=== PATIENT | female | born 1975 | race Caucasian/White ===

== ENCOUNTER → 2016-10-30 | Outpatient (CLI) | payer BC ==
--- NOTE | 2016-10-31 07:34 | WWHP ---
DATE OF SERVICE: 10/30/2016 CHIEF COMPLAINT: The patient is here for her routine gynecologic exam. HPI: This is a 41-year-old G3, P2-0 -1-2 with an LMP of 10/08/16. She has been using condoms for control. She states her periods have been regular every month, lasting 4 days with one day of heavy flow and period related pain. She states she can soak through her protection after about one hour on the very heavy days. She notices that if she is eating healthy and exercising regularly that the periods tend not to be as bad. She also states she had brief episode of vaginal odor mid September. She got concerned that she may have had a retained tampon since she does use tampons with her periods. The patient denies vaginal discharge and the odor resolved on its own. PAST MEDICAL HISTORY: DVT in 2012. She was on Coumadin for about 2 years and this was discontinued. She tested positive for MTHFR mutation and factor V Leiden mutation. MEDICATION: Aspirin 325 mg daily. ALLERGIES: No known drug allergies. PAST SURGICAL HISTORY: Tonsillectomy with adenoidectomy at age 19. Voluntary termination of in the past. PAST SUPERVISORY CLERK HISTORY: She has had hypermenorrhea and dysmenorrhea as above. She has no history of STDs. SOCIAL HISTORY: She denies tobacco and drug use and socially drinks alcohol. She is and does have a boyfriend. She is a fourth grade elementary schoolteacher. Family history is unchanged from the 2013 H&P. REVIEW OF SYSTEMS: Weight has been stable. RESPIRATORY: She is getting over a cold. She denies cardiac or GI problems. PHYSICAL EXAM: Blood pressure 124/85. Height 5 feet 7 inches. Weight 188 pounds. Temperature 98.7, pulse 97. This is a well-developed, well-nourished white female who is alert and oriented x3 in no acute distress. HEENT is within normal limits. NECK: Supple without mass or thyromegaly. CHEST AND LUNGS: Clear to auscultation. HEART: Regular rate and rhythm. Breasts are without mass or discharge. Axillary exam is negative for adenopathy. BACK: Negative for CVA tenderness. ABDOMEN: Soft, nontender, without palpable masses. PELVIC EXAM: Normal external genitalia. Cervix and vagina reveal a scant amount of menstrual-type blood in the vagina. There is no abnormal discharge and no odor noted. There is no evidence of retained tampon. There is no cervical motion tenderness. The uterus is midposition, nongravid size and nontender. There are no palpable adnexal masses or tenderness. Rectovaginal exam is negative for mass or tenderness and is negative for occult blood. EXTREMITIES: Nontender. IMPRESSION: 1. A 41-year-old female with normal gynecologic exam using condoms for control. 2. Mild hypermenorrhea and dysmenorrhea on the first day of each menstrual period without any significant physical findings at this time. 3. Brief history of vaginal odor one month ago, which did resolve. No evidence of vaginitis or retained tampons on examination. PLAN: 1. Pap smear was performed. 2. Self breast examination was discussed. 3. Baseline screening mammogram was recommended and a slip was given to patient for this. 4. Trial of meclofenamate sodium 100 mg t.i.d. p.r.n. for heavy menstrual flow up to 6 days per cycle. If there is no significant improvement, consider referral for endometrial ablation. 5. She will return if she is having recurrent vaginal odor or problems. 6. She will return in one year.
== END | disposition home or self-care (01) ==
LOC: WWCWWP 15:55
PROVIDERS: ATTEND Obstetrics & Gynecology

== ENCOUNTER → 2017-02-05 | Outpatient (CLI) | payer BC ==
--- NOTE | 2017-02-06 05:07 | WWPN ---
DATE OF SERVICE: 02/05/2017 CHIEF COMPLAINT: Period bleeding since 01/18/17. HPI: This is a 41-year-old G3, P2-0-1-2 with an LMP of 01/18/17. The patient has used condoms for control. Periods were regular every month, but she did have a history of mild hypermenorrhea and dysmenorrhea, which was improved with meclofenamate sodium. Her LMP started at the appropriate time and felt like a normal period through the first week but continued on as light bleeding with minimal cramping. Her bleeding has gone on to the present time. The bleeding is like the tail end of a period. PAST MEDICAL HISTORY: DVT in 2012 and was on Coumadin for about 2 years and this was discontinued. She has a positive MTHFR mutation and factor V Leiden mutation. MEDICATIONS: 1. Aspirin 325 mg daily. 2. Meclofenamate sodium 100 mg t.i.d. p.r.n. for heavy menstrual flow. REVIEW OF SYSTEMS: She denies respiratory, cardiac, or GI problems. PHYSICAL EXAM: Blood pressure 103/72. Height 5 feet 7 inches. Weight 191 pounds. Temperature 98.5, pulse 76. This a well-developed, well-nourished white female who is alert and oriented x3 in no acute distress. CHEST AND LUNGS: Clear to auscultation. HEART: Regular rate and rhythm. ABDOMEN: Soft, nontender, without palpable masses. PELVIC EXAM: Normal external genitalia. Cervix and vagina reveal a scant amount of menstrual-type blood in the vagina. There is no active bleeding. There is no cervical motion tenderness. There is no unusual discharge. The uterus is midposition, nongravid size and nontender. There are no palpable adnexal masses or tenderness. EXTREMITIES: Nontender. Negative Homans sign bilaterally. IMPRESSION: 1. A 41-year-old premenopausal female with dysfunctional uterine bleeding and prolonged bleeding since her LMP of 01/18/17. This followed regular menses and this LMP started at appropriate time. 2. History of mild hypermenorrhea and dysmenorrhea, which had improved with meclofenamate sodium. 3. History of deep venous thrombosis in the past. PLAN: 1. Because of her history of DVT, we will avoid all estrogen-containing treatments. We have discussed the use of progestin only treatment and I feel that a 12-day course of Provera will have advantages of any slight risk of blood clots. She was given a prescription for Provera 10 mg 1 daily x12 days, which she will start today. She understands that bleeding may or may not stop during the Provera but is likely to become heavier after stopping the medication. This should be period-like bleeding and should stop after a typical length. 2. Patient will continue to keep her menstrual calendar. She will call if she does not go back to having regular menses in which case we will consider endometrial biopsy, blood testing which will include TSH, and then also consider cyclic progestin treatment if the findings are benign. If she does go back to having regular menses, she will follow up in approximately 9 months at the time of her annual examination. Total time spent with the patient 25 minutes.
== END | disposition home or self-care (01) ==
LOC: WWCWWP 14:42
PROVIDERS: ATTEND Obstetrics & Gynecology
DX: Z53.9 Procedure and treatment not carried out, unspecified reason (principal)

== ENCOUNTER → 2017-02-27 | Outpatient (CLI) | payer BC ==
--- NOTE | 2017-02-28 09:59 | MM ---
Reason for exam: screening (asymptomatic). Baseline mammogram. History: Family history of breast cancer in paternal aunt. Took hormonal contraceptives for 20 years beginning at age 18. Physical Findings: Nurse Summary: 1cm nodule in the left breast at 12 o'clock (nurse mm). MG Screening Mammo w CAD Bilateral CC and MLO view(s) were taken. No prior studies available for comparison. The breast tissue is heterogeneously dense. This may lower the sensitivity of mammography. Finding: There is a 31 mm equal density (isodense), partially obscured round mass located 8 cm from the nipple in the right breast. There is no discrete abnormality. Left breast marked BB. These results were verbally communicated with the patient and result sheet given to the patient on 02/27/17. ASSESSMENT: Incomplete: need additional imaging evaluation, BI-RAD 0 RECOMMENDATION: Ultrasound of both breasts.
--- NOTE | 2017-02-28 10:00 | USB ---
Reason for exam: additional evaluation requested from abnormal screening. History: Family history of breast cancer in paternal aunt. Took hormonal contraceptives for 20 years beginning at age 18. US Breast Workup Limited PHYLICIA Left breast ultrasound demonstrates a 0.7 x 0.7 x 0.7cm round, cystic lesion at 12 o'clock and a 0.9 x 0.5 x 0.8cm oval, cystic lesion at 3 o'clock. Right breast ultrasound demonstrates a 1.9 x 0.9 x 1.6cm oval, cystic lesion at 1 o'clock. These results were verbally communicated with the patient and result sheet given to the patient on 02/27/17. ASSESSMENT: Probably benign, BI-RAD 3 RECOMMENDATION: Ultrasound of both breasts in 6 months. Manage on a clinical basis with regard to palpable.
== END | disposition home or self-care (01) ==
LOC: RADMAMWWP 15:49
PROVIDERS: ATTEND Obstetrics & Gynecology
DX: Z12.31 Encounter for screening mammogram for malignant neoplasm of breast (principal); R92.2 Inconclusive mammogram; R92.8 Other abnormal and inconclusive findings on diagnostic imaging of breast; Z80.3 Family history of malignant neoplasm of breast
CPT/HCPCS: 76642; G0202

== ENCOUNTER → 2018-01-10 | Outpatient (CLI) | payer BC ==
--- NOTE | 2018-01-10 16:43 | US ---
EXAMINATION TYPE: US venous doppler duplex LE LT DATE OF EXAM: 01/10/2018 4:26 PM COMPARISON: US CLINICAL HISTORY: I82.409 ACUTE EMBOLISM AND AND THROMBOSIS. Edema left leg, h/o DVT in left leg SIDE PERFORMED: Left TECHNIQUE: The lower extremity deep venous system is examined utilizing real time linear array sonog nidia with graded compression, doppler sonography and color-flow sonography. VESSELS IMAGED: External Iliac Vein (EIV) Common Femoral Vein Deep Femoral Vein Greater Saphenous Vein * Femoral Vein Popliteal Vein Small Saphenous Vein * Proximal Calf Veins (* superficial vessels) Left Leg: No sonographic evidence of DVT Additional imaging of Left FV, site of prior chronic DVT, vessel is compressible with wall to wall c olor flow. IMPRESSION: Negative exam. No sign of deep venous thrombosis in the left leg.
== END | disposition home or self-care (01) ==
LOC: RADUSWWP 15:53
PROVIDERS: ATTEND Family Medicine
DX: I82.402 Acute embolism and thrombosis of unspecified deep veins of left lower extremity (principal)

== ENCOUNTER → 2018-01-28 | Outpatient (CLI) | payer BC ==
[2018-01-28 11:38] VITALS: BP 108/75; PULSE 76; TEMP 98.1; BMI 30.5
--- NOTE | 2018-01-28 12:25 | P.HPOB ---
History of Present Illness H&P Date: 01/28/18 Chief Complaint: The patient is here for her routine gynecologic exam. This is a 42-year-old 012 with an LMP of 01/15/18. The patient has a history of hypermenorrhea and dysmenorrhea. She did try meclofenamate sodium which only helped slightly with the dysmenorrhea and did not help for the hypermenorrhea. The menses continue to be regular every month. She has had problems with one day each month with very heavy flow where she can soak through her protection and have related pain. The pain tends to be greater on the left side. She had an abnormal mammogram in February 2017. Bilateral breast ultrasounds were recommended at 6 months which she did not do. She does have an appointment for a mammogram in the upcoming month. Review of Systems The patient has gained 7 pounds over the last year. She denies respiratory or cardiac. G.I.: she does have occasional left-sided cramping and some constipation. Past Medical History Past Medical History: Deep Vein Thrombosis (DVT) (DVT in 2012) Additional Past Medical History / Comment(s): She tested positive for MT HFR mutation and factor 5 Leiden mutation. 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 History of Any Multi-Drug Resistant Organisms: None Reported Past Surgical History: Tonsillectomy (With adenoidectomy) Additional Past Surgical History / Comment(s): VTP in the past. Past Psychological History: No Psychological Hx Reported Smoking Status: Never smoker Past Alcohol Use History: Occasional (One per week) Past Drug Use History: None Reported Additional History: She is and has been with her boyfriend since about 2005 and does not live with him. 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 - Past Family History Mother Family Medical History: No Reported History Additional Family Medical History / Comment(s): She has a great grandmother who had a DVT. Medications and Allergies Home Medications Medication Instructions Recorded Confirmed Type Aspirin 325 mg PO HS 02/05/14 01/03/18 History Allergies Allergy/AdvReac Type Severity Reaction Status Date / Time No Known Allergies Allergy Verified 01/28/18 11:29 Exam - Vital Signs Vital signs: Vital Signs Temp Pulse BP 01/28/18 11:30 98.1 F 76 108/75 Intake and Output 01/27/18 01/28/18 01/28/18 22:59 06:59 14:59 Other: Weight 88.451 kg Height 5'7", BMI 30.5. This is a well-developed well-nourished white female who is alert and oriented times 3 in no acute distress. HEENT: Within normal limits. NECK: Supple without mass or thyromegaly. CHEST AND LUNGS: Clear to auscultation. HEART: Regular rate and rhythm. BREASTS: Are without mass or discharge. AXILLARY EXAM: Negative for adenopathy. BACK: Negative for CVA tenderness. ABDOMEN: Soft, nontender, without palpable masses. PELVIC EXAM: Normal external genitalia. Cervix and vagina appear normal. There is no unusual discharge. There is no evidence of prolapse. The uterus is midposition, nongravid size and nontender. There are no palpable adnexal masses or tenderness. RECTAL EXAM: negative for mass or tenderness and is negative for occult blood. EXTREMITIES: Nontender. IMPRESSION: 1. 42-year-old female with normal gynecologic exam. 2. History of hypermenorrhea and dysmenorrhea with minimal improvement using meclofenamate sodium. PLAN: 1. Pap smear was deferred since she had a normal one last year. 2. Self breast examination was discussed. 3. Diagnostic mammogram in the upcoming month. In order slope was given to the patient for this. 4. The patient will be scheduled for pelvic ultrasound. 5. We have discussed options for her dysmenorrhea and hypermenorrhea including endometrial ablation and hysterectomy. We will consider referral after her pelvic ultrasound has been completed. 6. Anaprox DS 1 b.i.d. PRN for menstrual pain. An electronic prescription will be sentenced to [facility] pharmacy. 7. Information on endometrial ablation was given to the patient. 8. She will return in one year and PRN.
== END | disposition home or self-care (01) ==
LOC: WWCWWP 11:20
PROVIDERS: ATTEND Obstetrics & Gynecology
DX: Z53.9 Procedure and treatment not carried out, unspecified reason (principal)

== ENCOUNTER → 2018-02-05 | Outpatient (CLI) | payer BC ==
--- NOTE | 2018-02-05 17:28 | US ---
EXAMINATION TYPE: US pelvis complete transvag DATE OF EXAM: 02/05/2018 COMPARISON: NONE CLINICAL HISTORY: N92.0 MENORRHAGIA,N94.6 DYSMENORRHEA. TECHNIQUE: Transvaginal (TV) and Transabdominal (TA) . Transabdominal sonographic images of the pel vis were acquired. Transvaginal sonographic images were medically necessary to better assess the fol lowing anatomy: Date of LMP: 01/16/2018 EXAM MEASUREMENTS: Uterus: 11.5 x 6.5 x 8.2 cm Endometrial Stripe: 1.0 cm Right Ovary: 3.0 x 2.4 x 4.2 cm Left Ovary: 2.6 x 1.9 x 2.6 cm 1. Uterus: Anteverted Large, bulky uterus with 4.0 x 3.4 x 3.8 cm hyperechoic fibroid, aadditional parenchymal changes indicative of smaller leiomyomas 2. Endometrium: wnl 3. Right Ovary: 1.7 x 1.5 x 1.7 cm cyst with mild debris, most l 4. Left Ovary: wnl 5. Bilateral Adnexa: wnl 6. Posterior cul-de-sac: wnl IMPRESSION: Fibroid uterus. Complex right ovarian cyst. No free fluid.
--- NOTE | 2018-02-06 07:00 | MM ---
Reason for exam: additional evaluation requested from prior study. Last mammogram was performed 11 months ago. History: Family history of breast cancer in paternal aunt. Took hormonal contraceptives for 20 years beginning at age 18. Physical Findings: Nurse Summary: 1cm nodule in the left breast at 12 o'clock (nurse rosemary). MG Diagnostic Mammo w CAD PHYLICIA Bilateral CC and MLO view(s) were taken. Prior study comparison: February 27, 2017, bilateral MG screening mammo w CAD. The breast tissue is heterogeneously dense. This may lower the sensitivity of mammography. Finding: There is a typically benign oval mass in the upper inner quadrant, posterior position of the right breast. BB rios stable palpable abnormality. No significant changes in finding since February 27, 2017. These results were verbally communicated with the patient and result sheet given to the patient on 02/05/17. ASSESSMENT: Benign, BI-RAD 2 RECOMMENDATION: Routine screening mammogram of both breasts in 1 year. Manage on a clinical basis with regard to left palpable abnormality.
--- NOTE | 2018-02-11 17:28 | P.PN ---
Progress Note - Text Progress Note Date: 02/11/18 OUTPATIENT FOLLOW-UP NOTE TEST(S)/RESULTS: pelvic ultrasound done on 02/05/2018 showed multiple uterine fibroids with the largest measuring 4.0 cm. METHOD OF NOTIFICATION: the patient was notified by phone. PATIENT COMMENTS: in addition to her hypermenorrhea and dysmenorrhea, the patient has been noticing pelvic pressure. DIAGNOSIS: hypermenorrhea, dysmenorrhea and multi-fibroid uterus. DISCUSSION: we have discussed various options including endometrial ablation and hysterectomy. She understands the endometrial ablation may be more difficult because of the uterine fibroids and also may be less effective. PLAN: the patient will be referred to a local game designer for possible surgical options.
== END | disposition home or self-care (01) ==
LOC: WWCWWP 15:57
PROVIDERS: ATTEND Obstetrics & Gynecology
DX: D25.9 Leiomyoma of uterus, unspecified (principal); N83.201 Unspecified ovarian cyst, right side; R92.8 Other abnormal and inconclusive findings on diagnostic imaging of breast
CPT/HCPCS: 76830; 76856; 77066

== ENCOUNTER 2018-12-14 13:28 | Emergency (ER) | payer BC ==
--- NOTE | 2018-12-14 13:58 | ED ---
Dizziness HPI - General Chief Complaint: Syncope Stated Complaint: heart concerns Time Seen by Provider: 12/14/18 13:41 Source: patient, RN notes reviewed, old records reviewed Mode of arrival: ambulatory Limitations: no limitations - History of Present Illness Initial Comments: This is a 43-year-old female the ER for evaluation presented with syncope versus near syncope event. Patient also having back pain. Patient had back pain going on for quite some time no recent travel history includes multiple flights. No leg pain. No history of DVT. No current chest pain she does have some shortness of breath when the event occurred. Patient was in her kitchen she felt very short of breath diaphoretic lightheaded and thought she is going to pass out that her head on the counter and the symptoms did adryan. The back pain that she had prior to go away. Patient is otherwise without any other medications takes no medications MD Complaint: dizziness, near syncope -: days(s) Timing: sudden onset Description: lightheadedness, nausea, near-syncope History of Same: No History of Trauma: No Severity: severe Improves With: remaining still Worsens With: nothing - Related Data Home Medications Medication Instructions Recorded Confirmed Aspirin 325 mg PO DAILY PRN 02/05/14 12/14/18 Oxycodone (Unknown Dose) 1 tab PO ONCE 12/14/18 12/14/18 Allergies Allergy/AdvReac Type Severity Reaction Status Date / Time No Known Allergies Allergy Verified 12/14/18 14:03 Review of Systems ROS Statement: Those systems with pertinent positive or pertinent negative responses have been documented in the HPI. ROS Other: All systems not noted in ROS Statement are negative. Past Medical History Past Medical History: Deep Vein Thrombosis (DVT) Additional Past Medical History / Comment(s): She tested positive for MT HFR mutation and factor 5 Leiden mutation. 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 History of Any Multi-Drug Resistant Organisms: None Reported Past Surgical History: Hysterectomy, Tonsillectomy Additional Past Surgical History / Comment(s): VTP in the past. Past Psychological History: No Psychological Hx Reported Smoking Status: Never smoker Past Alcohol Use History: Occasional Past Drug Use History: None Reported - Past Family History Mother Family Medical History: No Reported History Additional Family Medical History / Comment(s): She has a great grandmother who had a DVT. General Exam Limitations: no limitations General appearance: alert, in no apparent distress Head exam: Present: atraumatic, normocephalic, normal inspection Eye exam: Present: normal appearance, PERRL, EOMI. Absent: scleral icterus, conjunctival injection, periorbital swelling ENT exam: Present: normal exam, mucous membranes moist Neck exam: Present: normal inspection. Absent: tenderness, meningismus, lymphadenopathy Respiratory exam: Present: normal lung sounds bilaterally. Absent: respiratory distress, wheezes, rales, rhonchi, stridor Cardiovascular Exam: Present: regular rate, normal rhythm, normal heart sounds. Absent: systolic murmur, diastolic murmur, rubs, gallop, clicks GI/Abdominal exam: Present: soft, normal bowel sounds. Absent: distended, tenderness, guarding, rebound, rigid Extremities exam: Present: normal inspection, full ROM, normal capillary refill. Absent: tenderness, pedal edema, joint swelling, calf tenderness Back exam: Present: normal inspection Neurological exam: Present: alert, oriented X3, CN II-XII intact Psychiatric exam: Present: normal affect, normal mood Skin exam: Present: warm, dry, intact, normal color. Absent: rash Course Vital Signs 12/14/18 13:31 Temperature 98.2 F Pulse Rate 87 Respiratory 18 Rate Blood Pressure 136/85 O2 Sat by Pulse 99 Oximetry - Reevaluation(s) Reevaluation #1: 12/14/18 14:12 Medical record reviewed Reevaluation #2: 12/14/18 15:09 Patient is without recurrent syncopal event EKG Findings - EKG Comments: EKG Findings:: EKG shows sinus rhythm rate of 80, W[place] 160, QRS 72, QTc 4:15 Medical Decision Making - Medical Decision Making 50 female the ER for evaluation, syncopal event. No cause found. CT negative labwork normal. Patient can be discharged home - Lab Data Result diagrams: 12/14/18 14:04 12/14/18 14:04 Lab Results 12/14/18 12/14/18 12/14/18 Range/Units 14:04 14:04 14:04 WBC 8.2 (3.8-10.6) k/uL RBC 4.75 (3.80-5.40) m/uL Hgb 13.8 (11.4-16.0) gm/dL Hct 42.1 (34.0-46.0) % MCV 88.7 (80.0-100.0) fL MCH 29.1 (25.0-35.0) pg MCHC 32.9 (31.0-37.0) g/dL RDW 12.3 (11.5-15.5) % Plt Count 333 (150-450) k/uL Neutrophils % 72 % Lymphocytes % 21 % Monocytes % 4 % Eosinophils % 2 % Basophils % 1 % Neutrophils # 5.8 (1.3-7.7) k/uL Lymphocytes # 1.7 (1.0-4.8) k/uL Monocytes # 0.3 (0-1.0) k/uL Eosinophils # 0.2 (0-0.7) k/uL Basophils # 0.1 (0-0.2) k/uL PT 10.2 (9.0-12.0) sec INR 0.9 (<1.2) APTT 22.8 (22.0-30.0) sec D-Dimer 0.32 (<0.60) mg/L FEU Sodium 140 (137-145) mmol/L Potassium 4.0 (3.5-5.1) mmol/L Chloride 105 (98-107) mmol/L Carbon Dioxide 24 (22-30) mmol/L Anion Gap 11 mmol/L BUN 11 (7-17) mg/dL Creatinine 0.65 (0.52-1.04) mg/dL Est GFR (CKD-EPI)AfAm >90 (>60 ml/min/1.73 sqM) Est GFR (CKD-EPI)NonAf >90 (>60 ml/min/1.73 sqM) Glucose 105 H (74-99) mg/dL Calcium 9.3 (8.4-10.2) mg/dL Phosphorus 3.5 (2.5-4.5) mg/dL Magnesium 2.1 (1.6-2.3) mg/dL Total Bilirubin 0.6 (0.2-1.3) mg/dL AST 15 (14-36) U/L ALT 24 (9-52) U/L Alkaline Phosphatase 69 (38-126) U/L Troponin I (0.000-0.034) ng/mL NT-Pro-B Natriuret Pep pg/mL Total Protein 7.8 (6.3-8.2) g/dL Albumin 4.7 (3.5-5.0) g/dL 12/14/18 12/14/18 Range/Units 14:04 14:04 WBC (3.8-10.6) k/uL RBC (3.80-5.40) m/uL Hgb (11.4-16.0) gm/dL Hct (34.0-46.0) % MCV (80.0-100.0) fL MCH (25.0-35.0) pg MCHC (31.0-37.0) g/dL RDW (11.5-15.5) % Plt Count (150-450) k/uL Neutrophils % % Lymphocytes % % Monocytes % % Eosinophils % % Basophils % % Neutrophils # (1.3-7.7) k/uL Lymphocytes # (1.0-4.8) k/uL Monocytes # (0-1.0) k/uL Eosinophils # (0-0.7) k/uL Basophils # (0-0.2) k/uL PT (9.0-12.0) sec INR (<1.2) APTT (22.0-30.0) sec D-Dimer (<0.60) mg/L FEU Sodium (137-145) mmol/L Potassium (3.5-5.1) mmol/L Chloride (98-107) mmol/L Carbon Dioxide (22-30) mmol/L Anion Gap mmol/L BUN (7-17) mg/dL Creatinine (0.52-1.04) mg/dL Est GFR (CKD-EPI)AfAm (>60 ml/min/1.73 sqM) Est GFR (CKD-EPI)NonAf (>60 ml/min/1.73 sqM) Glucose (74-99) mg/dL Calcium (8.4-10.2) mg/dL Phosphorus (2.5-4.5) mg/dL Magnesium (1.6-2.3) mg/dL Total Bilirubin (0.2-1.3) mg/dL AST (14-36) U/L ALT (9-52) U/L Alkaline Phosphatase (38-126) U/L Troponin I <0.012 (0.000-0.034) ng/mL NT-Pro-B Natriuret Pep 67 pg/mL Total Protein (6.3-8.2) g/dL Albumin (3.5-5.0) g/dL - Radiology Data Radiology results: report reviewed (CTA chest is negative for acute disease), image reviewed Disposition Clinical Impression: Vasovagal syncope Disposition: HOME SELF-CARE Condition: Good Instructions (If sedation given, give patient instructions): Syncope (ED) Is patient prescribed a controlled substance at d/c from ED?: No Referrals: Sergio Lopez DO [Primary Care Provider] - 1-2 days
[2018-12-14] MEDS ORDERED: SODIUM CHLORIDE 0.9% 1,000 ML IV STA (14:10)
[2018-12-14 14:29] LABS: Basophils # (A) 0.1 k/uL (0-0.2); Basophils % (A) 1 %; Eosinophils # (A) 0.2 k/uL (0-0.7); Eosinophils % (A) 2 %; HCT 42.1 % (34.0-46.0); HGB 13.8 gm/dL (11.4-16.0); Lymphocytes # (A) 1.7 k/uL (1.0-4.8); Lymphocytes % (A) 21 %; MCH 29.1 pg (25.0-35.0); MCHC 32.9 g/dL (31.0-37.0); MCV 88.7 fL (80.0-100.0); Mean Platelet Volume 7.1; Monocytes # (A) 0.3 k/uL (0-1.0); Monocytes % (A) 4 %; Neutrophils # (A) 5.8 k/uL (1.3-7.7); Neutrophils % (A) 72 %; Platelet Count 333 k/uL (150-450); RBC 4.75 m/uL (3.80-5.40); RDW 12.3 % (11.5-15.5); WBC 8.2 k/uL (3.8-10.6)
[2018-12-14 14:38] LABS: ALT 24 U/L (9-52); AST 15 U/L (14-36); Albumin 4.7 g/dL (3.5-5.0); Alkaline Phosphatase 69 U/L (38-126); Anion Gap 11 mmol/L; Blood Urea Nitrogen 11 mg/dL (7-17); Calcium 9.3 mg/dL (8.4-10.2); Carbon Dioxide 24 mmol/L (22-30); Chloride 105 mmol/L (98-107); Glucose 105 mg/dL (74-99); Magnesium 2.1 mg/dL (1.6-2.3); Phosphorus 3.5 mg/dL (2.5-4.5); Sodium 140 mmol/L (137-145); Total Bilirubin 0.6 mg/dL (0.2-1.3); Total Protein 7.8 g/dL (6.3-8.2)
[2018-12-14 14:50] LABS: D-Dimer 0.32 mg/L FEU (<0.60); INR 0.9 (<1.2); Partial Thromboplastin Time 22.8 sec (22.0-30.0); Prothrombin Time 10.2 sec (9.0-12.0)
--- NOTE | 2018-12-14 15:04 | CT ---
EXAMINATION TYPE: CT angio chest DATE OF EXAM: 12/14/2018 2:52 PM COMPARISON: None HISTORY: Heart concerns CT DLP: 279.8 mGycm Automated exposure control for dose reduction was used. CONTRAST: CTA scan of the thorax is performed without and with IV Contrast, patient injected with 100 ml mL of Isovue 370, pulmonary embolism protocol. There are 3-D post processed images.. FINDINGS: There is minimal pleural thickening in the posterior lung benedict. There is no evidence of a pulmonary mass. The lungs are clear of consolidation. Heart size is normal. There is no pericardial effusion. There is no mediastinal adenopathy. There are no hilar masses. There is normal contrast opacification of the pulmonary arteries. There are no filling defects. The b sabrina thorax is intact.. IMPRESSION: NEGATIVE CT ANGIOGRAM OF THE CHEST. NO EVIDENCE OF PULMONARY EMBOLISM.
[2018-12-14 15:32] VITALS: BP 117/79; PULSE 68; RESP 16; TEMP 98
== END 2018-12-14 15:32 | disposition home or self-care (01) ==
LOC: EC 13:28
DX: R55 Syncope and collapse (principal); R11.0 Nausea; M54.9 Dorsalgia, unspecified; R06.02 Shortness of breath; R61 Generalized hyperhidrosis; Z79.891 Long term (current) use of opiate analgesic
CPT/HCPCS: 99285; 96360; 36415; 93005; 85379; 83880; 80053; 83735; 84100; 84484; 85025; 85610; 85730; 71275; Q9967

== ENCOUNTER → 2019-06-02 | Outpatient (CLI) | payer BC ==
[2019-06-02 14:20] VITALS: BP 113/77; PULSE 79; RESP 16; TEMP 97.9; BMI 29.4
--- NOTE | 2019-06-02 15:07 | P.HPOB ---
History of Present Illness H&P Date: 06/02/19 Chief Complaint: The patient is here for her routine gynecologic exam and ma mmogram. This is a 44-year-old with an LMP of 03/2018. The patient is status post TLH which was done at [facility] on 04/22/2018 and this was benign. The patient experienced occasional postcoital spotting recently. She is otherwise without complaints. Review of Systems She's lost about 6 pounds over the past year. Respiratory she has had occasional shortness of breath and was seen in the emergency room earlier this year for this. She denies any current cardiac problems or chest pain. She denies any G.I. problems. Past Medical History Past Medical History: Deep Vein Thrombosis (DVT) Additional Past Medical History / Comment(s): She tested positive for MTHFR mutation and factor 5 Leiden mutation. 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 History of Any Multi-Drug Resistant Organisms: None Reported Past Surgical History: Hysterectomy, Tonsillectomy Additional Past Surgical History / Comment(s): VTP in the past. [facility] 2017([facility]). Past Psychological History: No Psychological Hx Reported Smoking Status: Never smoker Past Alcohol Use History: Occasional (One per week) Past Drug Use History: None Reported Additional History: She is and has been with her boyfriend since 2005. She does not live with him. 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 - Past Family History Mother Family Medical History: No Reported History Additional Family Medical History / Comment(s): She has a great grandmother who had a DVT. Medications and Allergies Home Medications Medication Instructions Recorded Confirmed Type Aspirin 325 mg PO DAILY PRN 02/05/14 12/14/18 History Oxycodone (Unknown Dose) 1 tab PO ONCE 12/14/18 12/14/18 History Allergies Allergy/AdvReac Type Severity Reaction Status Date / Time No Known Allergies Allergy Verified 06/02/19 13:55 Exam Vital Signs Temp Pulse Resp BP Pulse Ox 06/02/19 13:56 97.9 F 79 16 113/77 96 Height 5'7", weight 188 pounds, BMI 29.5. This is a well-developed well-nourished white female who is alert and oriented times 3 in no acute distress. HEENT: Within normal limits. NECK: Supple without mass or thyromegaly. CHEST AND LUNGS: Clear to auscultation. HEART: Regular rate and rhythm. BREASTS: Are without mass or discharge. AXILLARY EXAM: Negative for adenopathy. BACK: Negative for CVA tenderness. ABDOMEN: Soft, nontender, without palpable masses. PELVIC EXAM: External genitalia appears normal. Vagina reveals small polypoid tissue at the vaginal cuff. There are 2 small polypoid growths at the vaginal cuff each measuring approximately 5 x 2 x 2 mm. No other vaginal lesions are noted. There is slight firmness at the area of the vaginal cuff which is nontender. With palpation small amount of blood was noted on the examining glove. There is no evidence of prolapse. Bimanual examination is otherwise negative for mass or tenderness. RECTAL EXAM: Rectal exam is negative for mass or tenderness and is negative for occult blood. EXTREMITIES: Nontender. IMPRESSION: 1. 44-year-old female who is status post TLH in April 2018 with occasional postcoital spotting. 2. Small polypoid tissue at the vaginal cuffx2. This tissue appears benign but may be causing the postcoital spotting. Differential diagnosis will include polypoid vaginal tissue and possible cervical polyps from remnant cervical tissue. PLAN: 1. Pap smears have been discontinued. 2. I have recommended that the patient return for removal of this vaginal cuff polypoid tissue. This can also be sent for pathological examination at the time. She states she will make this appointment. 3. Self breast awareness was discussed with the patient. 4. Osteoporosis prevention was discussed. I have stressed the importance of adequate calcium, vitamin D and regular exercise. Recommended amounts of calcium and vitamin D were also discussed. 5. Mammogram will be done today. 6. She was advised to return in one year for her annual well woman exam.
--- NOTE | 2019-06-03 12:16 | MM ---
Reason for exam: screening (asymptomatic). Last mammogram was performed 1 year and 4 months ago. History: Family history of breast cancer in paternal aunt. Took hormonal contraceptives for 20 years beginning at age 18. Physical Findings: A clinical breast exam by your physician is recommended on an annual basis and results should be correlated with mammographic findings. MG 3D Screening Mammo W/Cad Bilateral CC and MLO view(s) were taken. Prior study comparison: February 05, 2018, bilateral MG diagnostic mammo w CAD PHYLICIA. February 27, 2017, bilateral MG screening mammo w CAD. The breast tissue is heterogeneously dense. This may lower the sensitivity of mammography. Finding: There is a typically benign 26 mm equal density (isodense), circumscribed oval mass in the upper outer quadrant, posterior middle position of the right breast. No significant changes in finding since February 05, 2018 and February 27, 2017. ASSESSMENT: Benign, BI-RAD 2 RECOMMENDATION: Routine screening mammogram of both breasts in 1 year.
== END | disposition home or self-care (01) ==
LOC: WWCWWP 13:47
PROVIDERS: ATTEND Obstetrics & Gynecology
DX: Z12.31 Encounter for screening mammogram for malignant neoplasm of breast (principal)
CPT/HCPCS: 77063; 77067

== ENCOUNTER → 2019-06-03 | Day surgery (SDC) | payer BC ==
[2019-06-03 12:05] VITALS: BP 113/75; PULSE 70; RESP 18; TEMP 98.2; BMI 29.4
--- NOTE | 2019-06-03 13:05 | P.PCN ---
Date of Procedure: 06/03/19 Preoperative Diagnosis: Abnormal vaginal cuff polypoid tissue and post coital vaginal bleeding Postoperative Diagnosis: Abnormal vaginal cuff polypoid tissue and post coital vaginal bleeding Procedure(s) Performed: Removal of vaginal cuff polypoid tissue Anesthesia: none Surgeon: Sheldon Garsia Estimated Blood Loss (ml): 1 Pathology: other (vaginal cuff polypoid tissue) Condition: stable Disposition: same day Indications for Procedure: This was a 44-year-old female who is status post total laparoscopic hysterectomy in April 2018 who was experiencing occasional postcoital bleeding. The hysterectomy pathology was benign. She was found to have polypoid tissue at the vaginal cuff on her routine exam. Operative Findings: Darker red polypoid tissue measuring 16 x 4 x 4 mm at the vaginal cuff. Description of Procedure: The procedure was explained to the patient and all questions were answered. The patient was placed in the lithotomy position. The speculum was inserted into the vagina. The vaginal cuff lesion was clearly visualized and was prepped with Betadine solution. A ring forceps instrument was used to grasp the body of the polypoid tissue and was removed with a twisting fashion. A small part of the abnormal tissue was still attached to the vaginal cuff and this was removed with a cervical biopsy instrument. The site was made hemostatic with 2 silver nitrate sticks. The patient tolerated the procedure well. The estimated blood loss was 1 mL. There were no complications. The tissue was sent for pathological examination. Postprocedure blood pressure was 114/79, pulse 72 and pulse oximeter 98%. The patient was given instructions to call if she has unusual bleeding, unusual pain, fever, or problems. She was instructed to abstain from any sexual activity for one full week.
--- NOTE | 2019-06-09 17:18 | P.PN ---
Progress Note - Text Progress Note Date: 06/09/19 OUTPATIENT FOLLOW-UP NOTE TEST(S)/RESULTS: polypoid vaginal tissue was removed on 06/03/2019 in the pathologies shows benign polypoid granulation tissue. Mammogram done on 06/02/2019 was benign. METHOD OF NOTIFICATION: the patient was notified by phone. PATIENT COMMENTS: the patient is happy to hear these results. DIAGNOSIS: benign vaginal polypoid tissue and benign mammogram. DISCUSSION: the patient was instructed to call if she continues to have postcoital bleeding or problems. PLAN: She was advised to return in one year for her annual well woman exam.
== END ==
LOC: WWCWWP 11:54
PROVIDERS: ATTEND Obstetrics & Gynecology
DX: A58 Granuloma inguinale (principal); N84.2 Polyp of vagina
CPT/HCPCS: 88305

== ENCOUNTER → 2020-08-02 | Outpatient (CLI) | payer BC ==
[2020-08-02 09:32] VITALS: BP 116/79; PULSE 91; RESP 16; TEMP 98.5
--- NOTE | 2020-08-02 10:05 | P.HPOB ---
History of Present Illness H&P Date: 08/02/20 Chief Complaint: The patient is here for her routine gynecologic exam and ma mmogram. This is a 45-year-old 012 with an LMP of 2018. The patient is status post [facility] for benign reasons. The patient had some post coital bleeding and was found to have granulation tissue at the vaginal cuff that was removed about 1 year ago. The patient denies any more post coital bleeding. She is without gynecologic complaints and denies any hot flashes. Review of Systems The patient has lost 7 pounds over the last year. She has changed her diet to a plant based diet which she believes has helped with some left lower quadrant pains. She denies respiratory, cardiac, or G.I. problems. Past Medical History Past Medical History: Deep Vein Thrombosis (DVT) Additional Past Medical History / Comment(s): She tested positive for MTHFR mutation and factor 5 Leiden mutation. 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 History of Any Multi-Drug Resistant Organisms: None Reported Past Surgical History: Hysterectomy, Tonsillectomy Additional Past Surgical History / Comment(s): VTP in the past. [facility] 2018([facility]). Past Psychological History: No Psychological Hx Reported Smoking Status: Never smoker Past Alcohol Use History: Occasional (About 1 every other month) Past Drug Use History: None Reported Additional History: She is and has been with her boyfriend since 2005. Her boyfriend lives in [place] and she plans on moving there in 2020. 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 - Past Family History Mother Family Medical History: No Reported History Additional Family Medical History / Comment(s): She has a great grandmother who had a DVT. Medications and Allergies Home Medications Medication Instructions Recorded Confirmed Type Aspirin 325 mg PO DAILY PRN 02/05/14 08/02/20 History Allergies Allergy/AdvReac Type Severity Reaction Status Date / Time No Known Allergies Allergy Verified 08/02/20 09:32 Exam Vital Signs Temp Pulse Resp BP Pulse Ox 08/02/20 09:27 98.5 F 91 16 116/79 98 Intake and Output 08/01/20 08/02/20 08/02/20 22:59 06:59 14:59 Other: Weight 82.1 kg Height 5 feet 8 inches, weight 181 pounds, BMI 27.5. This is a well-developed well-nourished white female who is alert and oriented times 3 in no acute distress. HEENT: Within normal limits. NECK: Supple without mass or thyromegaly. CHEST AND LUNGS: Clear to auscultation. HEART: Regular rate and rhythm. BREASTS: Are without mass or discharge. AXILLARY EXAM: Negative for adenopathy. BACK: Negative for CVA tenderness. ABDOMEN: Soft, nontender, without palpable masses. PELVIC EXAM: External genitalia appears normal. Vagina appears normal. Vaginal cuff appears normal. There is no evidence of prolapse. Bimanual examination is negative for mass or tenderness. RECTAL EXAM: Rectovaginal exam is negative for mass or tenderness and is negative for occult blood. There is moderate firm stool in the rectum. EXTREMITIES: Nontender. IMPRESSION: 1. 45-year-old female status post TLH for benign reasons with normal gynecologic exam. PLAN: 1. Pap smears have been discontinued. 2. Self breast awareness was discussed with the patient. 3. Screening mammogram will be done today. 4. Osteoporosis prevention was discussed. I have stressed the importance of adequate calcium, vitamin D and regular exercise. Recommended amounts of calcium and vitamin D were also discussed. 5. She was advised to return in one year for her annual well woman exam or to establish with a physician in [place] after she moves for yearly exams and mammograms.
--- NOTE | 2020-08-04 08:27 | MM ---
Reason for exam: screening (asymptomatic). Last mammogram was performed 1 year and 2 months ago. History: Family history of breast cancer in paternal aunt. Took hormonal contraceptives for 20 years beginning at age 18. Physical Findings: A clinical breast exam by your physician is recommended on an annual basis and results should be correlated with mammographic findings. MG 3D Screening Mammo W/Cad Bilateral CC and MLO view(s) were taken. Prior study comparison: June 02, 2019, bilateral MG 3d screening mammo w/cad. February 05, 2018, bilateral MG diagnostic mammo w CAD PHYLICIA. The breast tissue is extremely dense which could obscure a lesion on mammography. Finding: There is a typically benign 38 mm equal density (isodense), circumscribed round mass in the upper inner quadrant, posterior position of the right breast. New finding since June 02, 2019 and February 05, 2018. ASSESSMENT: Incomplete: need additional imaging evaluation, BI-RAD 0 RECOMMENDATION: Ultrasound of the right breast. [facility] will attempt to contact patient to return for ultrasound.
== END | disposition home or self-care (01) ==
LOC: WWCWWP 09:15
PROVIDERS: ATTEND Obstetrics & Gynecology
DX: Z12.31 Encounter for screening mammogram for malignant neoplasm of breast (principal)
CPT/HCPCS: 77063; 77067

== ENCOUNTER → 2020-08-10 | Day surgery (SDC) | payer BC ==
[~2020-08-10] MED LIST: LACTATED RINGERS 1,000 ML IV ONE; LACTATED RINGERS 1,000 ML IV SCH; LIDOCAINE 1% (10MG/ML) FOR IV START INTRADERMA ONE; ONDANSETRON 4 MG/2 ML VIAL IVP PRN; PROPOFOL 10 MG/ML 20 ML VIAL IV ONE
--- NOTE | 2020-08-10 09:11 | P.GSHP ---
History of Present Illness H&P Date: 08/10/20 CHIEF COMPLAINT: Colon screen HISTORY OF PRESENT ILLNESS: The patient is a 45-year-old female who presents for colon screen. Lower endoscopy was offered for further evaluation and management. PAST MEDICAL HISTORY: Please see list. PAST SURGICAL HISTORY: Please see list. MEDICATIONS: Please see list. ALLERGIES: Please see list. SOCIAL HISTORY: No illicit drug use FAMILY HISTORY: No reports of Crohn disease or ulcerative colitis. REVIEW OF ORGAN SYSTEMS: CONSTITUTIONAL: No reports of fevers or chills. PHYSICAL EXAM: VITAL SIGNS: Stable GENERAL: Well-developed pleasant in no acute distress. HEENT: No scleral icterus. Extraocular movements grossly intact. Moist buccal mucosa. NECK: Supple without lymphadenopathy. CHEST: Unlabored respirations. Equal bilateral excursions. CARDIOVASCULAR: Regular rate and rhythm. Distal 2+ pulses. ABDOMEN: Soft, nontender, nondistended. MUSCULOSKELETAL: No clubbing, cyanosis, or edema. ASSESSMENT: 1. Colon screen. PLAN: 1. Recommend proceeding with a lower endoscopy Past Medical History Past Medical History: Deep Vein Thrombosis (DVT) Additional Past Medical History / Comment(s): CURRENT: LOWER LEFT QUANDRANT DISCOMFORT. She tested positive for MTHFR mutation and factor 5 Leiden mutation. History of Any Multi-Drug Resistant Organisms: None Reported Past Surgical History: Hysterectomy, Tonsillectomy Additional Past Surgical History / Comment(s): [facility] 2018([facility]). Past Anesthesia/Blood Transfusion Reactions: Motion Sickness Past Psychological History: No Psychological Hx Reported Smoking Status: Never smoker Past Alcohol Use History: Occasional Past Drug Use History: None Reported - Past Family History Mother Family Medical History: No Reported History Additional Family Medical History / Comment(s): She has a great grandmother who had a DVT. Medications and Allergies Home Medications Medication Instructions Recorded Confirmed Type Aspirin 325 mg PO DAILY PRN 02/05/14 08/05/20 History Allergies Allergy/AdvReac Type Severity Reaction Status Date / Time No Known Allergies Allergy Verified 08/05/20 11:44
[2020-08-10 10:52] VITALS: TEMP 97.8
--- NOTE | 2020-08-10 11:55 | P.PCN ---
Date of Procedure: 08/10/20 Description of Procedure: PREOPERATIVE DIAGNOSIS: Change in bowel habits POSTOPERATIVE DIAGNOSIS: Change in bowel habits Sigmoid volvulus, intermittent OPERATION: Colonoscopy to the cecum, ileocecal valve and appendiceal orifice. SURGEON: Corazon Vegas MD. ANESTHESIA: MAC. INDICATIONS: The patient is a 45-year-old female who presents with change in bowel habits including chronic constipation. Benefits and risks were described and informed consent was obtained. DESCRIPTION OF PROCEDURE: The patient had undergone Suprep. She had been brought into the operating room and laid in the left lateral decubitus position. After adequate intravenous sedation, the rectum was examined with 2% lidocaine jelly. No external hemorrhoids were encountered. The rectal tone was within normal limits. No lesions were palpated in the rectal vault. An Olympus colonoscope was advanced until the cecum, ileocecal valve and appendiceal orifice were clearly viewed. The prep was fair. No scattered diverticulosis was encountered. No colonic polyps were found. Abdominal pressure was used to advance the scope through a redundant and tortuous sigmoid colon consistent with sigmoid volvulus. No evidence of focal colitis was found. Retroflexion of the scope demonstrated grade 1 internal hemorrhoids without active bleeding or inflammation. The colon was desufflated. The patient had tolerated the procedure well. Withdrawal time was over 6 minutes. FINDINGS: Aronchick preparation quality scale 3 (1-5) Internal hemorrhoids, grade 1 No external prolapsed hemorrhoids. No arteriovenous malformations. No adenomatous polyps. No focal colitis. Sigmoid volvulus RECOMMENDATIONS: Lower endoscopy every in 5 2024 Plan - Discharge Summary Discharge Rx Participant: No New Discharge Prescriptions: Continue Aspirin 325 mg PO DAILY PRN PRN Reason: Pain Discharge Medication List Aspirin 325 mg PO DAILY PRN 02/05/14 [History] Follow up Appointment(s)/Referral(s): Corazon Vegas MD [STAFF PHYSICIAN] - 08/23/20 Patient Instructions/Handouts: *Surgery [facility] - (Anesthesia) Endoscopy Discharge Instructions Activity/Diet/Wound Care/Special Instructions: Repeat colonoscopy years, 2024 Discharge Disposition: HOME SELF-CARE
[2020-08-10 12:08] VITALS: BP 107/57; PULSE 80; RESP 16
== END | disposition home or self-care (01) ==
LOC: ORWHC2ENDO 10:32
PROVIDERS: ATTEND Surgery Plastic and Reconstructive Surgery
DX: K56.2 Volvulus (principal); Q43.8 Other specified congenital malformations of intestine; K64.0 First degree hemorrhoids; Z79.82 Long term (current) use of aspirin; Z90.710 Acquired absence of both cervix and uterus; Z98.890 Other specified postprocedural states; Z86.718 Personal history of other venous thrombosis and embolism
CPT/HCPCS: 45378; J2704

== ENCOUNTER → 2020-08-12 | Outpatient (CLI) | payer BC ==
--- NOTE | 2020-08-15 09:13 | USB ---
Reason for exam: additional evaluation requested from abnormal screening. History: Family history of breast cancer in paternal aunt. Took hormonal contraceptives for 20 years beginning at age 18. Physical Findings: Nurse did not find any significant physical abnormalities on exam. US Breast Workup Limited RT Right limited breast ultrasound including focal area of concern, retroareolar and axilla demonstrates a 3.4 x 1.1 x 3.0cm cystic lesion at 1 o'clock. These results were verbally communicated with the patient and result sheet given to the patient on 08/12/20. ASSESSMENT: Suspicious, BI-RAD 4 RECOMMENDATION: Aspiration of the right breast. Called Dr. Garsia's office with mammographic findings and has scheduled an appointment for the patient for 08/18/20 at 11:[address] Guillaume. Biopsy scheduled for 08/18/20 at 1:00. PRELIMINARY REPORT CALLED AND FAXED TO DR. GUILLAUME ON 08/15/20.
== END | disposition home or self-care (01) ==
LOC: RADUSWWP 07:06
PROVIDERS: ATTEND Obstetrics & Gynecology
DX: R92.8 Other abnormal and inconclusive findings on diagnostic imaging of breast (principal)

== ENCOUNTER → 2020-08-18 | Day surgery (SDC) | payer BC ==
[2020-08-18 13:03] VITALS: RESP 16
[2020-08-18 14:25] VITALS: BP 110/76; PULSE 73; TEMP 98.4
--- NOTE | 2020-08-18 15:05 | USB ---
EXAMINATION TYPE: US biopsy breast VAD RT, MG post biopsy diagnostic mammo RT wo CAD DATE OF EXAM: 08/18/2020 CLINICAL HISTORY: 45-year-old female enlarging upper inner quadrant right breast lesion, referred for aspiration R92.8, Abnormal mammogram. TECHNIQUE: Ultrasound guided core biopsy of right breast. COMPARISON: 08/12/2020, 06/02/2019 FINDINGS: The procedure of ultrasound guided core biopsy was explained to the patient. Benefits, alternatives, and risks were discussed. An informed consent was then obtained. The patient was placed in supine positioning for imaging and for the procedure. The overlying skin was prepped and draped in usual sterile fashion. Lidocaine was used as anesthetic into the skin and subcutaneous tissue up to area of concern in the deep 1:00 right breast. Multiple initial attempts at aspiration with an 18-gauge spinal needle were unsuccessful despite the needle tip being well centered in the lesion. Subsequently, under ultrasound guidance, a 13-gauge vacuum-assisted mammotome Elite biopsy gun device was used to obtain 8 core samples. Following this, a wing clip was left in lesion. The lesion did not collapse. Solid cores were returned within the collection chamber. The patient tolerated the procedure well without any immediate complication. The patient was kept in the radiology department for short stay after the procedure and then discharged home in stable condition. Postbiopsy mammogram shows clip within the upper inner quadrant posterior mass. IMPRESSION: Successful, uncomplicated ultrasound guided core biopsy of a slowly enlarging circumscribed mass posterior upper inner quadrant right breast that was thought to represent a cyst on ultrasound. Multiple attempts at aspiration were unsuccessful. Biopsy returned solid cores. Full pathology results to follow. Pathology Results: Benign RIGHT BREAST, 1:00, ULTRASOUND GUIDED CORE BIOPSY: Fibrocystic changes including cysts, fibrosis, sclerosing adenosis and columnar cell change. Recommendation Follow up mammogram of the right breast in 6 months. NIMCO
== END ==
LOC: RADUSWWP 10:51
PROVIDERS: ATTEND Surgery
DX: N60.31 Fibrosclerosis of right breast (principal); N60.21 Fibroadenosis of right breast
CPT/HCPCS: 88305; 77065; 19083; A4648

== ENCOUNTER → 2020-08-18 | Outpatient (CLI) | payer BC ==
[2020-08-18 11:13] VITALS: BP 112/73; PULSE 77; RESP 18; TEMP 98.5
--- NOTE | 2020-08-18 11:24 | P.GSHP ---
History of Present Illness H&P Date: 08/18/20 Chief Complaint: right breast mammogram and ultrasound abnormality Arvin is a 45 year old white female who had a routine bilateral mammogram on [id number]. This revealed a round mass in the upper inner quadrant of the right breast for which an ultrasound was performed. This revealed a 3.4 x 3 cm cystic lesion at 1:00. This was considered suspicious BIRADS 4 and aspiration was recommended. The patient does not feel anything of concern in her breasts. She is not complaining of any pain in the breast. She is not complaining of any lumps masses or nodules in her breast or any nipple discharge. She is not complaining of any trauma or infection in the breast and has not had any surgery in the breast. Patient had a hysterectomy several years ago. Her ovaries remain. She does not take any hormones or hormone products. She is not having any perimenopausal symptoms. Caffeine: chi tea twice a week smoke: none Theophylline: Hot chocolate daily Family History: father: bladder and prostate cancer paternal aunt: breast cancer mother: uterine or ovarian cancer Hormonal History: menarche: 13 [id number], breast fed: yes, first live at 24 hysterectomy pains BCP: prior to a DVT in 2012, used for 15 years hormones: none Surgical History: hyserectomy tonsil Medical History: DVT genetic testing: Factor V Leiden deficiency, MTHFR (clot easily) Social History: smoke: none alcohol: rare drugs: none - Constitutional Constitutional: Denies chills, Denies fever - EENT Eyes: denies blurred vision, denies pain Ears: right: decreased hearing Ears, nose, mouth and throat: Denies headache, Denies sore throat - Breasts Breasts: bilateral: as per HPI - Cardiovascular Cardiovascular: Denies chest pain, Denies shortness of breath - Respiratory Respiratory: Denies cough, Denies 7 - Gastrointestinal Comment: colonoscopy done one week ago redundant colon Gastrointestinal: Reports constipation - Genitourinary (Female) Genitourinary: Denies dysuria, Denies hematuria - Menstruation Menstruation: Reports post hysterectomy - Integumentary Integumentary: Denies pruritus, Denies rash - Neurological Neurological: Denies numbness, Denies weakness - Psychiatric Psychiatric: Denies anxiety, Denies depression - Endocrine Comment: intentional weight change Endocrine: Reports weight change - Hematologic/Lymphatic Comment: was on Coumadin for two years, off it now since [address] Umana Hematologic/Lymphatic: Reports as per HPI - Allergic/Immunologic Allergic/Immunologic: Reports as per HPI Past Medical History Past Medical History: Deep Vein Thrombosis (DVT) Additional Past Medical History / Comment(s): She tested positive for MTHFR mutation and factor 5 Leiden mutation. 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 History of Any Multi-Drug Resistant Organisms: None Reported Past Surgical History: Hysterectomy, Tonsillectomy Additional Past Surgical History / Comment(s): VTP in the past. TLH 2018([facility]). Past Psychological History: No Psychological Hx Reported Smoking Status: Never smoker Past Alcohol Use History: Occasional Past Drug Use History: None Reported - Past Family History Mother Family Medical History: No Reported History Additional Family Medical History / Comment(s): She has a great grandmother who had a DVT. Medications and Allergies Home Medications Medication Instructions Recorded Confirmed Type No Known Home Medications 08/15/20 08/15/20 History Allergies Allergy/AdvReac Type Severity Reaction Status Date / Time No Known Allergies Allergy Verified 08/15/20 12:42 Surgical - Exam BMI 27.5 - General well developed - Eyes normal ocular movement - ENT normal nares, no hearing loss - Neck trachea midline - Respiratory normal respiratory effort, clear to auscultation - Cardiovascular Rhythm: regular Heart Sounds: normal: S1, S2 - Abdomen Abdomen: soft, non tender, no guarding, no rigid, no rebound - Integumentary normal turgor - Neurologic no disoriented, no combative - Musculoskeletal normal gait, normal posture - Psychiatric oriented to time, oriented to person, oriented to place, speech is normal, memory intact Breast exam: BRA: 38C inspection: Right nipple slightly greater than left nipple, grade 1 ptosis bilaterally Palpation: Right breast: Multi-positional exam fibrocystic changes the area seen radiographically in the upper inner quadrant is not palpated Right axilla: No adenopathy of concern Left breast: Multi-positional exam fibrocystic changes, no dominant masses or nodules of concern Left axilla: No adenopathy of concern Results Mammogram and ultrasound results revealed, area of nodularity right breast for which aspiration/biopsy recommended Assessment and Plan Plan: Impression: 1. Left breast 3.4 x 3 cm cystic lesion 1:00 an ultrasound suspicious BIRADS 4 aspiration recommended 2. Bilateral mammogram [id number] reveals an area of iso-density in the right breast upper inner quadrant corresponding to the area seen on ultrasound 3. History of DVT factor V Leiden deficiency, MTHFR patient was on Coumadin in the past Plan: 1. Aspiration of cystic lesion right breast 2. Follow-up after aspiration for results 3. Nothing palpable on today's examination of aspiration is benign patient will have repeat mammogram/ultrasound in 6 months CC: Dr. Lopez The skin benefits of the procedure discussed with the patient. She understands and wishes to proceed with the aspiration. encounter 30 minutes, > 50% of time in planning and counselling
== END | disposition home or self-care (01) ==
LOC: WWCWWP 10:50
PROVIDERS: ATTEND Surgery
DX: Z53.9 Procedure and treatment not carried out, unspecified reason (principal)

== ENCOUNTER → 2020-08-26 | Outpatient (CLI) | payer BC ==
[2020-08-26 12:38] VITALS: BP 112/78; PULSE 102; RESP 18; TEMP 98.1
--- NOTE | 2020-08-26 13:02 | P.PN ---
Subjective Progress Note Date: 08/26/20 Principal diagnosis: results of cyst aspiration Arvin is a 45 year old white female status post right breast cyst aspiration on 08-18-20. Her pathology was fibrocystic changes Including cysts, fibrosis, sclerosing adenosis and columnar cell change. She tolerated the biop sy with no difficulty. The radiograph was reviewed with Dr. Aguirre from radiology, there is concern that the area sample is not concordant pathologically with what was seen on ultrasound. After discussion we have recommended that a repeat ultrasound be done in 6 weeks to see if the area of concern remains. If it does remain we would recommend needle localization and excision in the operating room. Objective - Exam BMI 27.9 - Constitutional General appearance: Present: average body habitus - EENT Eyes: Present: EOMI ENT: Present: hearing grossly normal - Neck Neck: Present: normal ROM - Respiratory Respiratory: bilateral: CTA - Cardiovascular Rhythm: regular Heart sounds: normal: S1, S2 - Integumentary Integumentary Comment(s): Core biopsy site clean and dry, no evidence of infection or hematoma Mild ecchymosis Integumentary: Present: normal turgor Assessment and Plan Assessment: Impression: 1. Patient status post ultrasound core biopsy of area of concern in the right breast, this is not considered concordant as per Dr. Aguirre 2. Repeat heat right breast ultrasound in 6 weeks if the area of concern remains was scheduled for needle localization and excisional biopsy 3. History of factor V Leiden deficiency, and CHF 5 patient was on Coumadin in the past The ultrasound core biopsy was consistent with fibrocystic breast changes however is felt to be discordant to the ultrasound findings as per radiology. They have recommended repeating a ultrasound in 6 weeks to see if the area of concern has resolved if not needle local excisional biopsy is recommended. CC: Dr. Lopez
== END | disposition home or self-care (01) ==
LOC: WWCWWP 12:13
PROVIDERS: ATTEND Surgery
DX: Z53.9 Procedure and treatment not carried out, unspecified reason (principal)

== ENCOUNTER → 2020-10-07 | Outpatient (CLI) | payer BC ==
--- NOTE | 2020-10-07 09:52 | USB ---
Reason for exam: follow-up at short interval from prior study. History: Family history of breast cancer in paternal aunt. Benign US biopsy breast VAD RT of the right breast, August 18, 2020. Took hormonal contraceptives for 20 years beginning at age 18. Physical Findings: Nurse did not find any significant physical abnormalities on exam. US Breast Limited RT Right limited breast ultrasound including focal area of concern, retroareolar and axilla demonstrates a 1.3 x 0.5 x 1.0cm mixed lesion at 1 o'clock. Prior right 1 o'clock cyst measured 3.4 x 1.1 x 3.0cm before biopsy. Nodular tissue throughout. These results were verbally communicated with the patient and result sheet given to the patient on 10/07/20. ASSESSMENT: Probably benign, BI-RAD 3 RECOMMENDATION: Ultrasound of the right breast in 6 months.
== END | disposition home or self-care (01) ==
LOC: RADUSWWP 08:51
PROVIDERS: ATTEND Surgery
DX: R92.8 Other abnormal and inconclusive findings on diagnostic imaging of breast (principal)

== ENCOUNTER 2020-11-08 08:58 | Day surgery (SDC) | payer BC ==
--- NOTE | 2020-11-04 09:03 | P.PN ---
Subjective Progress Note Date: 11/04/20 Principal diagnosis: Discordant ultrasound core biopsy right breast Arvin is a 45 year old white female who had a routine bilateral mammogram on [id number]. This revealed a round mass in the upper inner quadrant of the right breast for which an ultrasound was performed. This revealed a 3.4 x 3 cm cystic lesion at 1:00. This was considered suspicious BIRADS 4 and aspiration was recommended. The patient did not feel anything of concern in her breasts. She was not complaining of any pain in the breast. She was not complaining of any lumps masses or nodules in her breast or any nipple discharge. She was not complaining of any trauma or infection in the breast and had not had any surgery in the breast. Patient had a hysterectomy several years ago. Her ovaries remain. She does not take any hormones or hormone products. She is not having any perimenopausal symptoms. [place] [id number]. The lesion was unable to be aspirated and core biopsy was obtained. This revealed benign changes. The patient however had a repeat ultrasound in 120 221 and the area of the prior lesion continued to demonstrate a mixed lesion at 1:00. This was reviewed with Dr. Aguirre from radiology and it was felt that it was discordant with the biopsy results and open biopsy with needle localization should be performed. This was discussed with the patient. Caffeine: chi tea twice a week smoke: none Theophylline: Hot chocolate daily Family History: father: bladder and prostate cancer paternal aunt: breast cancer mother: uterine or ovarian cancer Hormonal History: menarche: 13 [id number], breast fed: yes, first live at 24 hysterectomy pains BCP: prior to a DVT in 2012, used for 15 years hormones: none Surgical History: hyserectomy tonsil Medical History: DVT genetic testing: Factor V Leiden deficiency, MTHFR (clot easily) Social History: smoke: none alcohol: rare drugs: none - Constitutional Constitutional: Denies chills, Denies fever - EENT Eyes: denies blurred vision, denies pain Ears: right: decreased hearing Ears, nose, mouth and throat: Denies headache, Denies sore throat - Breasts Breasts: bilateral: as per HPI - Cardiovascular Cardiovascular: Denies chest pain, Denies shortness of breath - Respiratory Respiratory: Denies cough, - Gastrointestinal Comment: colonoscopy done one week ago redundant colon Gastrointestinal: Reports constipation - Genitourinary (Female) Genitourinary: Denies dysuria, Denies hematuria - Menstruation Menstruation: Reports post hysterectomy - Integumentary Integumentary: Denies pruritus, Denies rash - Neurological Neurological: Denies numbness, Denies weakness - Psychiatric Psychiatric: Denies anxiety, Denies depression - Endocrine Comment: intentional weight change Endocrine: Reports weight change - Hematologic/Lymphatic Comment: was on Coumadin for two years, off it now since [address] Uamna Hematologic/Lymphatic: Reports as per HPI - Allergic/Immunologic Allergic/Immunologic: Reports as per HPI Objective - Constitutional General appearance: Present: average body habitus - EENT Eyes: Present: EOMI ENT: Present: hearing grossly normal - Neck Neck: Present: normal ROM - Respiratory Respiratory: bilateral: CTA - Cardiovascular Rhythm: regular Heart sounds: normal: S1, S2 - Gastrointestinal General gastrointestinal: Present: normal bowel sounds, soft - Integumentary Integumentary: Present: normal turgor - Musculoskeletal Musculoskeletal: Present: gait normal - Psychiatric Psychiatric: Present: A&O x's 3, appropriate affect, intact judgment & insight - Additional findings Additional findings: Breast examination: Bra: 30 8C Inspection: Right nipple slightly larger than the left nipple, grade 1 ptosis bilaterally Palpation: Right breast: Multiple positional exam fibrocystic changes the area seen radiographically in the upper outer quadrant was not palpated Right axilla: No adenopathy of concern Left breast: Multiple positional exam fibrocystic changes, no dominant masses or nodules of concern Left axilla: No adenopathy of concern Assessment and Plan Assessment: Impression: 1. Discordant ultrasound core biopsy right breast 2. History of DVT factor V Leiden deficiency, and CHF or patient was on Coumadin in the past Plan: 1. Lesion felt to be discordant for biopsy results on the right breast therefore needle localization and excisional biopsy lesion right breast 2. Possible onco-plastic tissue transfer Risks and benefits of the procedure were discussed with the patient including bleeding, infection, and reaction to the anesthetic. She understands and wishes to proceed. Cc: Dr. Lopez
[2020-11-07 12:30] VITALS: BMI 28.6
[~2020-11-08 08:58] MED LIST changes: +ALPRAZolam 0.5 MG TAB PO PRN; +DEXAMETHASONE SOD PHOSPHATE 4 MG/ML 1 ML VIAL IV ONE; +HEPARIN SODIUM,PORCINE 5,000 UNIT/ML 1 ML VIAL SQ PRN; +HYDROmorphone 0.5 MG/0.5 ML SYRINGE IVP PRN; -LACTATED RINGERS 1,000 ML IV ONE; -LIDOCAINE 1% (10MG/ML) FOR IV START INTRADERMA ONE; +LIDOCAINE 1% (10MG/ML) FOR IV START INTRADERMA PRN; +ONDANSETRON 4 MG/2 ML VIAL IVP ONE; -ONDANSETRON 4 MG/2 ML VIAL IVP PRN; -PROPOFOL 10 MG/ML 20 ML VIAL IV ONE; +Pre Op ABX Message 1 EACH MISC MISCELLANE ONE
[2020-11-08 09:53] VITALS: RESP 16; TEMP 98.1
[2020-11-08] MEDS ORDERED: LIDOCAINE 1% INJ 10MG/ML (20 ML MDV) SQ ONE (11:21)
[2020-11-08] MEDS ORDERED: MIDAZOLAM 2 MG/2 ML VIAL ONE (11:57)
[2020-11-08] MEDS ORDERED: fentaNYL (PF) 50 MCG/ML 2 ML AMP ONE (11:57)
[2020-11-08] MEDS ORDERED: LIDOCAINE 1% INJ 10MG/ML (20 ML MDV) ONE (11:57)
[2020-11-08] MEDS ORDERED: PROPOFOL 10 MG/ML 20 ML VIAL IV ONE (11:57)
--- NOTE | 2020-11-08 13:07 | USB ---
EXAM: Needle localization with wire placement. CLINICAL HISTORY: Enlarging lesion right breast. Benign biopsy. Possible discordance. TECHNIQUE: Needle localization with wire placement and surgical excision of area of concern in the right breast. COMPARISON: Prior ultrasound October 07, 2020 and older studies. FINDINGS: The procedure of needle localization with wire placement and than surgical excision was explained to the patient. Benefits, alternatives, and risks were discussed. An informed consent was then obtained. Ultrasound guidance for localization chosen due to posterior depth central lesion at area of concern on mammogram. Preprocedure ultrasound redemonstrates roughly 2 to 3 cm oval deep lesion 1:00 position slightly more hypoechoic on today's study just superficial to the deeper pectoralis muscle corresponds to lesion of concern on ultrasound August 18, 2020. Biopsy clip identified within the lesion. The overlying skin was prepped and draped in usual sterile fashion. Lidocaine is used as anesthetic into the skin and subcutaneous tissue up to the level of area of concern. A 7 cm needle was used. It was placed via ultrasound guidance. At this point, wire was placed and the needle was withdrawn. The wire was fixed to patient's skin. Post procedure mammogram shows successful placement of needle via lateral approach within lesion adjacent to biopsy clip. Images were marked for surgeon. Images reviewed with surgeon prior to surgery. The patient tolerated the procedure well without any immediate complication. The patient was kept in the radiology department for short stay after the procedure and then taken to surgery for surgical excision. Targeted mass and clip and wire are identified in specimen mammogram. The patient was kept in hospital for short stay after the procedure and then discharged home in stable condition. IMPRESSION: Successful, uncomplicated needle localization with wire placement and surgical excision of targeted mass in the right breast, full pathology results to follow. Low to intermediate index of suspicion noted at time of procedure. Pathology Results: Benign RIGHT BREAST, LUMPECTOMY: Benign fibroadenoma. Hypocellular and fibrotic benign appearing lesional stromal tissue present at superior, anterior, posterior and lateral inked margin surfaces. Background breast having fibrocystic change with apocrine metaplasia, focal calcification, columnar cell change, focal usual ductal hyperplasia, biopsy site change and benign adenosis. Negative for in situ or invasive carcinoma. Recommendation Follow up mammogram of the right breast in 6 months. JOSED
--- NOTE | 2020-11-08 13:14 | P.OP ---
Date of Procedure: 11/08/20 Preoperative Diagnosis: Radiographic abnormality right breast/core biopsy discordant Postoperative Diagnosis: Same Procedure(s) Performed: Breast needle localization excisional lumpectomy, onco-plastic tissue transfer, 52 cm Anesthesia: MOISÉSA Surgeon: Leelee Guillaume Estimated Blood Loss (ml): 5 IV fluids (ml): 850 Pathology: other (Breast tissue, circumscribed tissue present) Condition: stable Disposition: same day Indications for Procedure: Discordant core biopsy right breast Operative Findings: 3 by 4 cm smooth margined mass right breast at the tip of the needle Description of Procedure: The patient is a 45-year-old white female who underwent an ultrasound core biopsy of an area of concern in the right breast. This was felt to be discordant and removal and the operating room was recommended. The patient was first taken to radiology for needle localization of the area of concern was performed. The patient was then brought to the operating room. Following induction of anesthesia the breast was prepped and draped in a sterile fashion. An incision was made and carried down to the shaft of the needle. This was carried to the tip of the needle and surrounding tissue was excised. The area of lesion was approximately 4 x 3 cm the cavity was 5 x 5 cm. A superior pedicle which was 5 x 3 cm was performed and an inferior pedicle which was relatively centimeters was performed. The total amount of tissue mobilized was approximately 52 cm. Titanium clips were placed to rosa the cavity. The specimen was painted for orientation, and radiographs revealed the area of concern about removed. The cavity was examined for hemostasis which was achieved using electrocautery device. Surgicel and pelvis was placed. The superior and inferior pillars were brought together using 3-0 Vicryl suture. The subcutaneous tissue was closed with 3-0 Vicryl suture. The skin was closed using 4-0 Monocryl. A nylon suture was then placed. The patient tolerated the procedure in stable condition. All instrument and sponge counts were correct at the end of the case.
--- NOTE | 2020-11-08 13:16 | P.DS ---
Providers Attending physician: Leelee Guillaume Primary care physician: Sergio Lopez Plan - Discharge Summary Discharge Rx Participant: No New Discharge Prescriptions: No Action No Known Home Medications Discharge Medication List No Known Home Medications 08/15/20 [History] Follow up Appointment(s)/Referral(s): Leelee Guillaume MD [STAFF PHYSICIAN] - 1 Week Activity/Diet/Wound Care/Special Instructions: do not drive today may shower after 48 hours wear bra at all times Discharge Disposition: HOME SELF-CARE
[2020-11-08 14:19] VITALS: BP 119/76; PULSE 73
== END 2020-11-08 14:55 | disposition home or self-care (01) ==
LOC: OR 08:58
PROVIDERS: ATTEND Surgery
DX: D24.1 Benign neoplasm of right breast (principal); N60.81 Other benign mammary dysplasias of right breast; R92.1 Mammographic calcification found on diagnostic imaging of breast; N62 Hypertrophy of breast; R92.8 Other abnormal and inconclusive findings on diagnostic imaging of breast; Z80.52 Family history of malignant neoplasm of bladder; Z80.42 Family history of malignant neoplasm of prostate; Z80.3 Family history of malignant neoplasm of breast; Z80.41 Family history of malignant neoplasm of ovary; Z90.710 Acquired absence of both cervix and uterus; Z90.89 Acquired absence of other organs; Z86.718 Personal history of other venous thrombosis and embolism; D68.2 Hereditary deficiency of other clotting factors; I50.9 Heart failure, unspecified
CPT/HCPCS: 19125; 14301; 88307; 77065; 76098; J2250; J1644; J1100; J2405; J2001; J3010; J2704